=== PATIENT | female | born 1990 | race Caucasian/White ===

== ENCOUNTER → 2017-11-22 | Outpatient (CLI) | payer OTHER ==
[2017-11-22 15:40] LABS: HEMATOCRIT 38.4 % (35.0-46.0); HEMOGLOBIN 12.9 GM/DL (11.6-15.3); MEAN CELL VOLUME 86.7 FL (80.0-100.0); MEAN CORPUSCULAR HEMOGLOBIN 29.2 PG (27.0-34.0); MEAN CORPUSCULAR HGB CONC 33.6 % (32.0-36.0); MEAN PLATELET VOLUME 8.4 FL (7.0-11.0); PLATELET COUNT 260 TH/MM3 (150-450); RED BLOOD COUNT 4.42 MIL/MM3 (4.00-5.30); RED CELL DISTRIBUTION WIDTH 14.1 % (11.6-17.2)
[2017-11-22 16:30] LABS: FREE T4 0.89 NG/DL (0.76-1.46)
[2017-11-25 22:36] LABS: BIOAVAILABLE TESTOSTERONE 4.4 ng/dL; FREE TESTOSTERONE 0.61 ng/dL (0.06-1.06); PROLACTIN 9.7 ng/mL (4.8 - 23.3)
== END ==
LOC: CLAB 15:04
PROVIDERS: ATTEND Obstetrics & Gynecology
DX: N91.0 Primary amenorrhea (principal); E28.8 Other ovarian dysfunction
CPT/HCPCS: 36415; 83001; 84146; 84403; 84410; 84439; 84443; 84480; 84702; 85027

== ENCOUNTER → 2018-01-03 | Outpatient (CLI) | payer OTHER | LOC: CLAB 15:14 | PROVIDERS: ATTEND Obstetrics & Gynecology | DX: E28.9 Ovarian dysfunction, unspecified (principal) | CPT/HCPCS: 36415; 84144 ==

== ENCOUNTER → 2018-01-14 | Outpatient (CLI) | payer OTHER | LOC: CLAB 15:15 | PROVIDERS: ATTEND Obstetrics & Gynecology | DX: O26.21 Pregnancy care for patient with recurrent pregnancy loss, first trimester (principal) | CPT/HCPCS: 36415; 84144; 84702 ==

== ENCOUNTER → 2018-01-16 | Outpatient (CLI) | payer OTHER ==
[2018-01-16 14:00] LABS: HEMATOCRIT 39.1 % (35.0-46.0); HEMOGLOBIN 13.1 GM/DL (11.6-15.3); MEAN CELL VOLUME 87.6 FL (80.0-100.0); MEAN CORPUSCULAR HEMOGLOBIN 29.4 PG (27.0-34.0); MEAN CORPUSCULAR HGB CONC 33.6 % (32.0-36.0); MEAN PLATELET VOLUME 8.7 FL (7.0-11.0); PLATELET COUNT 283 TH/MM3 (150-450); RED BLOOD COUNT 4.46 MIL/MM3 (4.00-5.30); RED CELL DISTRIBUTION WIDTH 13.7 % (11.6-17.2); WHITE BLOOD COUNT 8.4 TH/MM3 (4.0-11.0)
== END ==
LOC: CLAB 13:25
PROVIDERS: ATTEND Obstetrics & Gynecology
DX: O20.0 Threatened abortion (principal); Z01.83 Encounter for blood typing
CPT/HCPCS: 36415; 84702; 85027; 86900; 86901

== ENCOUNTER → 2018-01-20 | Outpatient (CLI) | payer OTHER | LOC: CLAB 07:00 | PROVIDERS: ATTEND Obstetrics & Gynecology | DX: O02.1 Missed abortion (principal) | CPT/HCPCS: 36415; 84702 ==